=== PATIENT | male | born 1955 | race Caucasian/White ===

== ENCOUNTER 2017-06-15 12:02 | Observation (INO) ==
[2017-06-15] MEDS ORDERED: 0.9 % Sodium Chloride 500 ML IVC ONE (12:25)
[2017-06-15] MEDS ORDERED: GI Cocktail 40 ML EACH PO ONE (12:25)
[2017-06-15] MEDS ORDERED: Nitroglycerin 0.4 MG TAB.SUBL SL ONE (12:25)
--- NOTE | 2017-06-15 12:29 | Emergency Department Note ---
Disposition Clinical Impression: Chest pain, rule out acute myocardial infarction, Pancreatitis Disposition: Admitted As Inpatient Condition: Good Time of Disposition: 13:36 Chest Pain HPI - General Chief Complaint: ED Chest Pain Stated Complaint: Chest Pain Heart burn Time Seen by Provider: 06/15/17 12:12 Source: patient, family Mode of arrival: ambulatory Limitations: no limitations Vital Signs Reviewed: Yes Nursing Notes Reviewed: Yes - History of Present Illness HPI Narrative: Patient presents to the ED with the chief complaint of chest pain and heartburn. Patient reports that last 2-3 days. He has been having issues with heartburn. States that he has had a gastric bypass and has also been eating tomatoes and thinks this may be contributing. However, this morning he came in from outside and was sitting in his chair and had the abrupt onset of a retrosternal pain radiating through to his back. He reports that it felt like somebody was taking his heart and twisting it back and forth. He states this is the exact symptoms he was having with his previous DC several years ago. He does have a history of factor V Leiden deficiency and is on Xarelto. He also has a history of DVT and PE. He reports that his legs have been a little swollen, but he also has a history of CHF. States they have been mostly symmetrical but his left leg is slightly more swollen than his right. He states that the pain lasted about 20 minutes. His states that he was laid back in his chair kicking his feet saying that it was hurting so badly. He denies any headache, changes in vision, shortness of breath above baseline, abdominal pain, nausea, vomiting, diaphoresis. There is no radiation of the pain. He also has a history of a renal cell carcinoma and is status post removal. This was around the same time as his heart attack and was found incidentally on imaging of his abdomen at that time Severity scale (1-10): 2 - Related Data Home Medications Medication Instructions Recorded Confirmed Allopurinol [Zyloprim 100 MG] 100 mg PO DAILY 01/01/17 06/15/17 Amlodipine Besylate 10 mg PO DAILY 01/01/17 06/15/17 Aspirin Enteric Coated [Aspirin EC] 81 mg PO DAILY 01/01/17 06/15/17 Atorvastatin Calcium [Lipitor] 80 mg PO HS 01/01/17 06/15/17 Bumetanide 0.5 mg PO BID PRN 01/01/17 06/15/17 Cholecalciferol (D-3) [Vitamin D] 1,000 unit PO DAILY 01/01/17 06/15/17 Doxazosin Mesylate [Cardura] 8 mg PO BID 01/01/17 06/15/17 Hydralazine HCl 50 mg PO BID 01/01/17 06/15/17 Levothyroxine Sodium [Levo-T] 75 mcg PO DAILY 01/01/17 06/15/17 OxyCODONE/APAP 5/325 [Percocet 1 each PO Q6HR PRN 01/01/17 06/15/17 5/325 MG] Rivaroxaban [Xarelto] 15 mg PO HS 01/01/17 06/15/17 Vitamin B Complex [B Complex] 1 each PO DAILY 01/01/17 06/15/17 BuPROPion XL (24 HR) [Wellbutrin 150 mg PO QPM 06/15/17 06/15/17 XL] Bupropion HCl [Wellbutrin Xl] 300 mg PO QAM 06/15/17 06/15/17 Carvedilol [Coreg] 6.25 mg PO BIDWM 06/15/17 06/15/17 Cyanocobalamin (Vitamin B-12) 1,000 mcg SL DAILY 06/15/17 06/15/17 [Vitamin B-12] cloNIDine HCl [CloNIDine HCl] 0.1 mg PO BID 06/15/17 06/15/17 Allergies Allergy/AdvReac Type Severity Reaction Status Date / Time Warfarin AdvReac See Verified 01/01/17 07:49 Comments All systems ED: reviewed and negative except as stated. Constitutional: Denies: fever Cardiovascular: Reports: chest pain Genitourinary: Denies: dysuria Musculoskeletal: Denies: back pain Neurological: Denies: headache Chest Pain PMH - Past Medical History Medical history: Reports: cancer, COPD, DVT, diabetes, hyperlipidemia, hypertension, myocardial infarction, renal disease, other Surgical history: Reports: cancer surgery, cholecystectomy, other Psychiatric history: Reports: anxiety, bipolar - Social History Smoking Status: Former smoker Alcohol use: Reports: none Drug use: Reports: none Physical Exam - General Limitations: no limitations General appearance: alert, in no apparent distress - Head Head exam: atraumatic, normocephalic, normal inspection - Eye Eye exam: Present: normal appearance, PERRL, EOMI - ENT ENT exam: normal exam, normal oropharynx, mucous membranes moist - Neck Neck exam: Present: normal inspection, full ROM, trachea midline - Chest Chest inspection: Present: normal inspection, symmetric chest wall rise - Respiratory Respiratory exam: Present: normal lung sounds bilaterally - Cardiovascular Cardiovascular exam: Present: regular rate, normal rhythm, normal heart sounds - Abdominal Exam Abdominal exam: Present: soft, Non-Tender. Absent: tenderness, distention, guarding, rebound, rigidity - Extremities Exam Extremities exam: Present: normal inspection, full ROM, other (Patient reports swelling, but there is no obvious edema). Absent: tenderness, pedal edema, calf tenderness - Back Exam Back exam: Present: normal inspection, full ROM. Absent: tenderness - Neurological Exam Neurological exam: Present: alert, oriented X3 - Psychiatric Psychiatric exam: Present: normal affect, normal mood - Skin Skin exam: Present: warm, dry, intact, normal color Course Course Narrative: Very pleasant 61-year-old male presenting with anginal equivalent chest pain while at home a few hours ago. Also has a history of factor V Leiden with multiple DVTs and PEs, but only has one kidney left. He is not tachycardic, hypotensive or hypoxic. We will workup and admit for chest pain rule out. Vital Signs Temperature 97.5 F L 06/15/17 12:04 Pulse Rate 56 06/15/17 12:04 Respiratory Rate 16 06/15/17 12:04 Blood Pressure 127/68 06/15/17 12:04 O2 Sat by Pulse Oximetry 96 06/15/17 12:04 Temperature 97.5 F L 06/15/17 12:04 Pulse Rate 53 06/15/17 15:00 Respiratory Rate 16 06/15/17 15:54 Blood Pressure 134/73 06/15/17 15:54 O2 Sat by Pulse Oximetry 95 06/15/17 15:00 Oxygen Delivery Oxygen Delivery Room Air Chest Pain - Medical Records Medical records reviewed: Yes I reviewed the patient's medical records. - Lab Data Lab results reviewed: Yes I reviewed the patient's lab results. Result diagrams: 06/15/17 12:51 06/15/17 12:51 Lab Results 06/15/17 06/15/17 06/15/17 Range/Units 12:51 12:51 12:51 WBC (4.3-11.1) K/mcL RBC (4.19-5.50) M/mcL Hgb (12.9-16.9) g/dL Hct (37.5-50.1) % MCV (83.0-100.0) fL MCH (28.0-33.3) pg MCHC (31.6-35.5) g/dL RDW (11.5-14.5) % Plt Count (140-400) K/mcL MPV (9.4-12.4) fL Immature Gran % (0-4) % Seg Neutrophils % % Lymphocytes % % Monocytes % % Eosinophils % % Basophils % % Neutrophils # (1.6-8.9) K/mcL Lymphocytes # (0.6-4.6) K/mcL Monocytes # (0.0-1.3) K/mcL Eosinophils # (0.0-0.6) K/mcL Basophils # (0.0-0.2) K/mcL PT 12.7 H (9.4-12.1) Seconds INR 1.2 APTT 29.5 (26.0-36.0) Seconds Sodium (136-145) mEq/L Potassium (3.5-4.5) mEq/L Chloride (98-109) mEq/L Carbon Dioxide (19-29) mEq/L BUN (8-26) mg/dL Creatinine (0.72-1.25) mg/dL Est GFR ( Amer) (> 60) Est GFR (Non-Af Amer) (> 60) BUN/Creatinine Ratio (6-26) Glucose (70-99) mg/dL Calculated Osmolality (280-300) Calcium (8.6-10.8) mg/dL Total Bilirubin 0.5 (0.2-1.2) mg/dL Direct Bilirubin 0.2 (0.0-0.5) mg/dL Indirect Bilirubin 0.3 (0.0-1.2) mg/dL AST 43 H (5-34) Units/L ALT 57 H (0-55) Units/L Alkaline Phosphatase 82 (38-126) Units/L Troponin I (0-0.03) ng/mL B-Natriuretic Peptide 27 (0-100) pg/mL Serum Total Protein 6.8 (6.0-8.3) g/dL Albumin 3.4 L (3.5-5.0) g/dL Globulin 3.4 (2.4-3.5) g/dL Albumin/Globulin Ratio 1.0 L (1.1-2.2) Lipase 769 H (8-78) Units/L 06/15/17 06/15/17 06/15/17 Range/Units 12:51 12:51 12:51 WBC 9.8 (4.3-11.1) K/mcL RBC 4.02 L (4.19-5.50) M/mcL Hgb 11.8 L (12.9-16.9) g/dL Hct 36.6 L (37.5-50.1) % MCV 91.0 (83.0-100.0) fL MCH 29.4 (28.0-33.3) pg MCHC 32.2 (31.6-35.5) g/dL RDW 12.6 (11.5-14.5) % Plt Count 312 (140-400) K/mcL MPV 9.0 L (9.4-12.4) fL Immature Gran % 0.1 (0-4) % Seg Neutrophils % 68.5 % Lymphocytes % 18.7 % Monocytes % 8.6 % Eosinophils % 3.2 % Basophils % 0.9 % Neutrophils # 6.7 (1.6-8.9) K/mcL Lymphocytes # 1.8 (0.6-4.6) K/mcL Monocytes # 0.8 (0.0-1.3) K/mcL Eosinophils # 0.3 (0.0-0.6) K/mcL Basophils # 0.1 (0.0-0.2) K/mcL PT (9.4-12.1) Seconds INR APTT (26.0-36.0) Seconds Sodium 141 (136-145) mEq/L Potassium 4.3 (3.5-4.5) mEq/L Chloride 108 (98-109) mEq/L Carbon Dioxide 24 (19-29) mEq/L BUN 33 H (8-26) mg/dL Creatinine 1.56 H (0.72-1.25) mg/dL Est GFR ( Amer) 55 L (> 60) Est GFR (Non-Af Amer) 46 L (> 60) BUN/Creatinine Ratio 21 (6-26) Glucose 150 H (70-99) mg/dL Calculated Osmolality 302 H (280-300) Calcium 9.3 (8.6-10.8) mg/dL Total Bilirubin (0.2-1.2) mg/dL Direct Bilirubin (0.0-0.5) mg/dL Indirect Bilirubin (0.0-1.2) mg/dL AST (5-34) Units/L ALT (0-55) Units/L Alkaline Phosphatase (38-126) Units/L Troponin I 0.01 (0-0.03) ng/mL B-Natriuretic Peptide (0-100) pg/mL Serum Total Protein (6.0-8.3) g/dL Albumin (3.5-5.0) g/dL Globulin (2.4-3.5) g/dL Albumin/Globulin Ratio (1.1-2.2) Lipase (8-78) Units/L - Radiology Data Radiology results reviewed: Yes I reviewed the patient's radiology results. - EKG Data EKG attestation: Yes I reviewed and interpreted this EKG. EKG results narrative: Sinus rhythm, rate 60, VA interval 163, QRS 134, QTC 406, borderline left axis deviation, no acute ischemic changes. Attestation Statement - Attestation Attestation: I, Blair Ruiz, examined this patient and my medical decision-making was reviewed with the [employer]/PA/Advanced Practice Nurse/Resident Physician. I agree with the documented findings, disposition and treatment plan as described except to the extent set forth below. 61-year-old male presents with concerns of epigastric/chest pain. Patient states the pain was located in the subxiphoid area radiated to his back and was described as a ripping and tearing sensation. Patient states that this felt exactly like his previous heart attack. Pain occurred after he exerted himself , mowing the lawn. Patient has a history of factor V Leiden and has history of multiple blood clots. Patient does state that he has had mild swelling of the left lower extremity intermittently over the past few weeks however this is not out of the ordinary for him. He denies fever, chills, diarrhea, rash. On physical exam the patient has mild tenderness to palpation of the epigastrium. Lungs are clear to auscultation bilaterally. Patient is not tachycardic or hypoxic on exam. Pain improved significantly after administration of GI cocktail and nitroglycerin in the emergency department. X-ray did not show evidence of mediastinal widening however I would still be concerned about aortic dissection with patient's age. Initial troponin was negative. EKG showed normal sinus rhythm with a rate of 60 without evidence of STEMI. Lipase was significantly elevated. They cryptitis is a reasonable explanation for the patient's symptoms. Because of his history of nephrectomy and decreased kidney functioning, I will withhold CTA of the chest abdomen pelvis to evaluate for aortic dissection and possible PE and we will admit to the hospital for further care and evaluation.
[2017-06-15 13:02] LABS: Basophils # 0.1 K/mcL (0.0-0.2); Basophils % 0.9 %; Eosinophils # 0.3 K/mcL (0.0-0.6); Eosinophils % 3.2 %; Hematocrit 36.6 % (37.5-50.1); Hemoglobin 11.8 g/dL (12.9-16.9); Immature Granulocytes % 0.1 % (0-4); Lymphocytes # 1.8 K/mcL (0.6-4.6); Lymphocytes % 18.7 %; Mean Corpuscular HGB Conc 32.2 g/dL (31.6-35.5); Mean Corpuscular Hemoglobin 29.4 pg (28.0-33.3); Monocytes # 0.8 K/mcL (0.0-1.3); Monocytes % 8.6 %; Neutrophils # 6.7 K/mcL (1.6-8.9); Platelet Count 312 K/mcL (140-400); Red Blood Count 4.02 M/mcL (4.19-5.50); Red Cell Distribution Width 12.6 % (11.5-14.5); Segmented Neutrophils % 68.5 %
[2017-06-15 13:08] LABS: INR 1.2; Prothrombin Time 12.7 Seconds (9.4-12.1)
[2017-06-15 13:11] LABS: Activated Partial Thrombo Time 29.5 Seconds (26.0-36.0)
[2017-06-15 13:17] LABS: Calcium 9.3 mg/dL (8.6-10.8); Potassium 4.3 mEq/L (3.5-4.5)
[2017-06-15 13:19] LABS: Albumin 3.4 g/dL (3.5-5.0); Bilirubin,Direct 0.2 mg/dL (0.0-0.5); Bilirubin,Indirect 0.3 mg/dL (0.0-1.2); Bilirubin,Total 0.5 mg/dL (0.2-1.2); Globulin 3.4 g/dL (2.4-3.5); Total Protein 6.8 g/dL (6.0-8.3)
[2017-06-15] MEDS ORDERED: 0.9 % Sodium Chloride 1,000 ML IVC ONE (13:36)
[2017-06-15 14:49] LABS: Bilirubin,Urine Negative (Negative); Blood,Urine Negative (Negative); Clarity,Urine Clear (Clear); Color,Urine Yellow (Yellow); Glucose,Urine (UA) Normal (Normal); Ketones,Urine Negative (Negative); Leukocyte Esterase,Urine Negative (Negative); Nitrite,Urine Negative (Negative); Protein,Urine 100 mg/dL (Neg-Trace); Specific Gravity,Urine 1.019 (1.010-1.025); Urobilinogen,Urine Normal (Normal)
--- NOTE | 2017-06-15 15:04 | Internal Med History&Physical ---
<Arleen Lao - Last Filed: 06/15/17 16:50> Date of Encounter: 06/15/17 Time of Encounter: 15:04 Assessment and Plan (1) Chest pain Current visit: Yes Status: Acute 1 patient has a past cardiac history had a NE in 2010 with stent placement. Patient states he did have a stress test last year which was negative for ischemia as well as a cardiac cath-states it was done at this facility however I cannot find any information. He does have history of hypertension hyperlipidemia diabetes. He did experience midsternal chest pressure describing it as burning and twisting of his heart. Last approximately 5-10 minutes and resolved he did express some epigastric pain which was relieved with nitroglycerin as well as GI cocktail. First set of troponins are negative we will continue to cycle troponins 2 continuous cardiac monitoring 3 we will obtain cardiac echo 4 . Concern pancreatitis may be contributing to this pain patient's lipase is elevated and No noncontrast CT signs of acute pancreatitis. He continues to have some epigastric pain. This could be contributing to his chest pain We will hold off on a stress test at this time. We can consult cardiology as needed and have patient complete stress as outpatient 5 nitroglycerin morphine as needed for chest pain 6 oxygen as needed 7 continue with aspirin and statin and beta kinsey Qualifiers: Chest pain type: unspecified Qualified Code(s): R07.9 - Chest pain, unspecified (2) Pancreatitis Current visit: Yes Status: Acute 1 Patient has been experiencing epigastric pain, lipase is elevated at 769 CT is negative for pancreatitis-we will make patient nothing by mouth for now, CT abd : No noncontrast CT signs of acute pancreatitis. 2 we will give IV fluids 3 morphine as needed for pain 4 monitor blood sugars and treat SSI insulin Qualifiers: Chronicity: acute Pancreatitis type: unspecified pancreatitis type Acute pancreatitis complication: unspecified Qualified Code(s): K85.90 - Acute pancreatitis without necrosis or infection, unspecified (3) Diabetes Current visit: Yes Status: Acute 1 diet controlled diabetic. We will perform every 6 hours with signs: Insulin due to fact patient is nothing by mouth for pancreatitis 2 diabetic diet when able to eat Qualifiers: Diabetes mellitus type: type 2 Diabetes mellitus complication status: without complication Diabetes mellitus intermodal dispatcher insulin use: without intermodal dispatcher use Qualified Code(s): E11.9 - Type 2 diabetes mellitus without complications (4) Hypertension Current visit: Yes Status: Acute Presently controlled we will continue with home medications clonidine and hydralazine does maintain systolic less than 140 Qualifiers: Hypertension type: essential hypertension Qualified Code(s): I10 - Essential (primary) hypertension (5) History of DVT (deep vein thrombosis) Current visit: No Status: Chronic 1 patient has history of DVT as well as factor V Leiden who continue with Xarelto (6) CKD (chronic kidney disease) stage 3, GFR 30-59 ml/min Current visit: No Status: Chronic 1 patient has history of right nephrectomy due to renal cell carcinoma. Creatinine appears to be at baseline. We will continue to monitor 2 avoid nephrotoxins 3 monitor intake and output Internal Medicine - H&P: HPI Chief complaint: CP Admitted From: Emergency Dept Plans for Post Hospital Care: Home History of present illness: Mr. Nelson is a 61 year old male Renal cell carcinoma , right nephrectomy gastric bypass COPD DVT DM HLD HTN NE Factor V Liden cholecystectomy bipolar. Patient states that over the past few days he has been experiencing some heartburn and first see contributed to the fact that he has had a gastric bypass and Maze procedure eating a lot of tomatoes. This morning the patient was working in his garden he sat down to rest and he began to experience midsternal chest pressure describing as somebody taking his heart and twisting her back and forth. He did feel a little nauseous and lightheaded however he denied any shortness of breath or diaphoresis. The pain came on gradually and also partly 5-10 minutes and resolved on its own. There were no relieving or aggravating factors. He became concerned because it was similar to his pain he experienced when he had it heart attack 2010. Went to the ER for evaluation. Lab work did reveal an elevated lipase at 769 his BNP was 27 his troponin was 0. He was experiencing some epigastric pain he was given nitroglycerin as well as a GI cocktail which did relieve his symptoms Chest x-ray no acute process EKG normal sinus rhythm with no ST-T wave abnormality noted. CT of abdomen was negative for any pancreatitis. He has been admitted for further workup and evaluation. Presently patient denies any chest pain or shortness of breath. His lung sounds are clear heart sounds are regular S1 and S2 with no murmurs clicks, murmurs noted abdomen soft and nontender to palpation. No pedal edema noted. He is hemodynamically stable this time. I reviewed this case with Dr. Toribio who agree with plan. Past Med Surg Social Fam HX - Past Medical History Medical history: cancer, COPD, DVT, diabetes, hyperlipidemia, hypertension, myocardial infarction, renal disease, other Psychiatric history: anxiety, bipolar - Past Surgical History Surgical History: cancer surgery, cholecystectomy, other - Social History Smoking Status: Former smoker Smokeless Tobacco Status: No Alcohol use: none Drug use: none - Family History Mother Living Status: Age at : 63 Cause of : Renal carcinoma Father Living Status: Age at : 79 Cause of : Pancreatic cancer Internal Medicine - H&P: Meds Allopurinol [Zyloprim 100 MG] 100 mg PO DAILY 01/01/17 [History] Amlodipine Besylate 10 mg PO DAILY 01/01/17 [History] Aspirin Enteric Coated [Aspirin EC] 81 mg PO DAILY 01/01/17 [History] Atorvastatin Calcium [Lipitor] 80 mg PO HS 01/01/17 [History] Bumetanide 0.5 mg PO BID PRN 01/01/17 [History] Cholecalciferol (D-3) [Vitamin D] 1,000 unit PO DAILY 01/01/17 [History] Doxazosin Mesylate [Cardura] 8 mg PO BID 01/01/17 [History] Hydralazine HCl 50 mg PO BID 01/01/17 [History] Levothyroxine Sodium [Levo-T] 75 mcg PO DAILY 01/01/17 [History] OxyCODONE/APAP 5/325 [Percocet 5/325 MG] 1 each PO Q6HR PRN 01/01/17 [History] Rivaroxaban [Xarelto] 15 mg PO HS 01/01/17 [History] Vitamin B Complex [B Complex] 1 each PO DAILY 01/01/17 [History] BuPROPion XL (24 HR) [Wellbutrin XL] 150 mg PO QPM 06/15/17 [History] Bupropion HCl [Wellbutrin Xl] 300 mg PO QAM 06/15/17 [History] Carvedilol [Coreg] 6.25 mg PO BIDWM 06/15/17 [History] Cyanocobalamin (Vitamin B-12) [Vitamin B-12] 1,000 mcg SL DAILY 06/15/17 [ History] cloNIDine HCl [CloNIDine HCl] 0.1 mg PO BID 06/15/17 [History] 3 Allergy/AdvReac Type Severity Reaction Status Date / Time Warfarin AdvReac See Verified 01/01/17 07:49 Comments All Systems PM: A 10-system review of systems was performed and is negative for pertinent findings except as documented above in the HPI. - Constitutional Constitutional: no chills, no fever(s), no night sweats - EENT Eyes: no change in vision, no discharge, no pain, no photophobia Ears: no ear discharge, no ear pain, no tinnitus Nose, mouth and throat: no dysphagia, no nasal discharge, no neck pain, no sore throat - Cardiovascular Cardiovascular ROS IM: no chest pain, no diaphoresis, no dyspnea, no lightheadedness, no palpitations, no syncope - Respiratory Respiratory: no cough, no dyspnea, no wheezing, no excessive phlegm production - Gastrointestinal Gastrointestinal: heartburn, nausea - Musculoskeletal Musculoskeletal ROS IM: no numbness, no tingling - Integumentary Integumentary IM: no rash, no unusual bruising - Neurological Neurological ROS: no confusion, no convulsions, no focal weakness, no numbness, no tingling, no tremor(s) - Hematologic/Lymphatic Hematologic/Lymphatic: no easy bruising - Constitutional Vitals: Temp Pulse Resp BP Pulse Ox 97.5 F L 58 16 128/65 94 06/15/17 12:04 06/15/17 13:00 06/15/17 13:00 06/15/17 13:00 06/15/17 13:00 General appearance: Present: A&O X 3, answers questions appropriately - Head Head exam: Present: atraumatic, normocephalic - Eye Eye exam: Present: PERRL, conjuntiva pink, sclera anicteric Pupils: Present: PERRL - Neck Neck exam general surgery: Present: supple, trachea midline. Absent: lymphadenopathy - Respiratory Respiratory exam: Present: CTAB. Absent: accessory muscle use, rales, rhonchi, wheezes - Cardiovascular Cardiovascular exam: Present: RRR, +S1, +S2. Absent: diastolic murmur, gallop, rubs, systolic murmur - GI/Abdominal GI/Abdominal exam: Present: normal bowel sounds, soft, no peritoneal signs. Absent: distended, tenderness - Extremities Exam Extremities exam: Present: warm, radial pulses palpable and symmetrical. Absent : calf tenderness, cyanotic, pedal edema - Neurological Exam Neurological exam: Present: CN II-XII intact, oriented X3, no focal deficits. Absent: pronater drift, facial droop, speech deficit - Skin Skin exam: Present: dry, intact Internal Med - H&P Results - Labs CBC & Chem 7: 06/15/17 12:51 06/15/17 12:51 Labs: Urine 06/15/17 Range/Units 14:30 Urine Color Yellow (Yellow) Urine Clarity Clear (Clear) Urine pH 6.0 (5.0-8.0) pH Units Ur Specific [place] 1.019 (1.010-1.025) Urine Protein 100 H (Neg-Trace) mg/dL Urine Glucose (UA) Normal (Normal) mg/dL - EKG Data EKG shows normal: sinus rhythm - EKG Data Prior EKG available for review: yes When compared to previous EKG: there is no significant change - Diagnostic Studies Other Images Additional comments: Chest X-Ray 06/15/17 12:25 IMPRESSION: No acute disease. D/ / Brooke Patel Cha, MD / Brooke Patel Cha, MD Interpreting Provider: Brooke Patel Cha, MD Abdomen/Pelvis CT 06/15/17 13:51 IMPRESSION: No evidence of acute intra-abdominal inflammatory process or fluid collection. No noncontrast CT signs of acute pancreatitis. Increased density within the subcutaneous fat of the lower anterior right abdominal wall abutting the skin surface. Findings could be related to subcutaneous injection. Correlation for other etiologies to include cellulitis is recommended. D/ / Brooke Patel Cha, MD / Brooke Patel Cha, MD Interpreting Provider: Brooke Patel Cha, MD <Harjinder Toribio - Last Filed: 06/15/17 19:22> Date of Encounter: 06/15/17 Internal Medicine - H&P: HPI History of present illness: Mr. Nelson is a 61 year old male All Systems PM: A 10-system review of systems was performed and is negative for pertinent findings except as documented above in the HPI. - Constitutional Vitals: Temp Pulse Resp BP Pulse Ox 98.0 F 57 16 156/78 98 06/15/17 19:12 06/15/17 19:12 06/15/17 19:12 06/15/17 19:12 06/15/17 19:12 Internal Med - H&P Results - Labs CBC & Chem 7: 06/15/17 12:51 06/15/17 12:51 Labs: Urine 06/15/17 Range/Units 14:30 Urine Color Yellow (Yellow) Urine Clarity Clear (Clear) Urine pH 6.0 (5.0-8.0) pH Units Ur Specific [place] 1.019 (1.010-1.025) Urine Protein 100 H (Neg-Trace) mg/dL Urine Glucose (UA) Normal (Normal) mg/dL - Attending Attestation I have seen and examined pt. I have discussed with DIRECTOR FIELD SERVICES Ms Lao regarding the management plan. Agree with documentation. Pt has chest/epigastric pain. Intermittent, respond to NTG or GI cocktail. Pt has hx of CAD s/p stent. Need to r/o ACS. Will track 3 sets of troponin, keep cont cardiac monitoring, check echocardiogram. Pt has elevated lipase. Pain is also possibly due to acute pancreatitis. Will keep pt NPO, IVF, and pain control. F/U serial troponin. As pt has acute pancreatitis at this point, will not place stress test for him.
[2017-06-15] MEDS ORDERED: Ondansetron 4 MG/2 ML VIAL IVP PRN (15:05)
[2017-06-15] MEDS ORDERED: Naloxone 0.4 MG/ML INJ IVP PRN (15:05)
[2017-06-15 15:07] LABS: Bacteria,Urine Few per hpf (None-Few); RBC,Urine 0-3 per hpf (0-3); Squamous Epithelial Cell,Urine Few per lpf (None-Few); WBC,Urine 0-3 per hpf (0-3)
[2017-06-15] MEDS ORDERED: Nitroglycerin 0.4 MG TAB.SUBL SL PRN (15:10)
[2017-06-15] MEDS ORDERED: *HR* Morphine 2 MG/ML SYRINGE IVP PRN (15:10)
[2017-06-15] MEDS ORDERED: *HR* OxyCODONE/APAP 5/325 TABLET PO PRN (15:13)
[2017-06-15] MEDS ORDERED: *HR* Dextrose 50 % in Water (Syg) 50 ML SYRINGE IVP PRN (16:26)
[2017-06-15] MEDS ORDERED: D5% in Water 1,000 ML IVC PRN (16:26)
[2017-06-15] MEDS ORDERED: Dextrose Gel 15 GM PO PRN ×2 (16:26)
[2017-06-15] MEDS: Insulin LISPRO 300 UNITS/3 ML VIAL SQ SCH ×2 (18:39→19:00)
[2017-06-15] MEDS: Pantoprazole 40 MG VIAL IVP SCH (18:43)
[2017-06-15] MEDS: BuPROPion XL (24 HR) 150 MG TABLET PO SCH (18:43)
[2017-06-15] MEDS: cloNIDine HCl 0.1 MG TABLET PO SCH (20:47)
[2017-06-15] MEDS: hydrALAZINE 25 MG TABLET PO SCH (20:47)
[2017-06-15] MEDS: *HR* Rivaroxaban 15 MG TABLET PO SCH (20:47)
[2017-06-16] MEDS: Insulin LISPRO 300 UNITS/3 ML VIAL SQ SCH ×6 (00:55→18:02)
[2017-06-16 01:53] LABS: Basophils # 0.1 K/mcL (0.0-0.2); Basophils % 0.7 %; Eosinophils # 0.4 K/mcL (0.0-0.6); Eosinophils % 3.8 %; Hematocrit 35.1 % (37.5-50.1); Hemoglobin 11.4 g/dL (12.9-16.9); Immature Granulocytes % 0.2 % (0-4); Mean Corpuscular HGB Conc 32.5 g/dL (31.6-35.5); Mean Corpuscular Hemoglobin 29.6 pg (28.0-33.3); Mean Corpuscular Volume 91.2 fL (83.0-100.0); Mean Platelet Volume 8.9 fL (9.4-12.4); Monocytes # 0.8 K/mcL (0.0-1.3); Monocytes % 7.8 %; Neutrophils # 6.7 K/mcL (1.6-8.9); Platelet Count 293 K/mcL (140-400); Red Blood Count 3.85 M/mcL (4.19-5.50); Red Cell Distribution Width 12.6 % (11.5-14.5); Segmented Neutrophils % 67.5 %
[2017-06-16 02:07] LABS: BUN/Creatinine Ratio 20 (6-26); Blood Urea Nitrogen 27 mg/dL (8-26); Calcium 9.1 mg/dL (8.6-10.8); Carbon Dioxide 25 mEq/L (19-29); Chloride 110 mEq/L (98-109); Chol/HDL Ratio 3.1 (0-4.9); Cholesterol 88 mg/dL (< 200); Glucose 101 mg/dL (70-99); HDL Cholesterol 28 mg/dL (40-59); LDL Cholesterol,Calculated 41 mg/dL (0-99); Magnesium 1.9 mg/dL (1.6-2.6); Osmolality,Calculated 297 (280-300); Sodium 141 mEq/L (136-145); Triglycerides 95 mg/dL (< 150); eGFR For African Americans > 60 (> 60); eGFR For Non-African Americans 54 (> 60)
[2017-06-16] MEDS: Pantoprazole 40 MG VIAL IVP SCH ×2 (05:58→18:05)
[2017-06-16] MEDS: 0.9 % Sodium Chloride 1,000 ML IVC SCH ×2 (06:08→21:37)
--- NOTE | 2017-06-16 17:54 | Electrocardiograph Report ---
[address] [address] Test Date: 2017-06-15 Pat Name: Av Nelson Department: 105 Room: 3B Gender: [employer] Teacher: AM : 1955 Requested By: Emerson Lunsford Order Number: [id number] Reading MD: Mega Cage MD Measurements Intervals [place] Rate: 60 P: 92 IA: 163 QRS: 19 QRSD: 134 T: 27 QT: 406 QTc: 406 Interpretive Statements SINUS RHYTHM INTRAVENTRICULAR CONDUCTION DELAY Electronically Signed On 06-16-2017 17:52:14 EDT by Mega Cage MD
[2017-06-16] MEDS: cloNIDine HCl 0.1 MG TABLET PO SCH ×2 (18:01→21:37)
[2017-06-16] MEDS: Cholecalciferol (D-3) 1,000 UNIT TABLET PO SCH (18:02)
[2017-06-16] MEDS: BuPROPion XL (24 HR) 150 MG TABLET PO SCH ×2 (18:02→18:05)
[2017-06-16] MEDS: hydrALAZINE 25 MG TABLET PO SCH ×2 (18:02→21:37)
[2017-06-16] MEDS: Cyanocobalamin (B-12) 1,000 MCG TABLET PO SCH (18:02)
[2017-06-16] MEDS: Aspirin Enteric Coated 81 MG Tablet PO SCH (18:04)
[2017-06-16] MEDS: Sucralfate 1 GM TABLET PO SCH ×2 (18:05→21:37)
[2017-06-16] MEDS: amLODIPine 5 MG TABLET PO SCH (18:05)
--- NOTE | 2017-06-16 18:49 | Internal Med Progress Note ---
Date of Encounter: 06/16/17 Time of Encounter: 16:40 - Assessment and plan (1) Chest pain Current Visit: Yes Status: Acute Assessment and plan: Patient had an MRI of April, with stent placement. States that he has stress test last year which was negative for ischemia and a cardiac catheter that he states was done here, I cannot locate information. His risk factors of hypertension, hyperlipidemia, diabetes. He has had a bariatric surgery and has lost about 100 pounds. He says he did have midsternal burning, lasted approximately 5-10 minutes and resolved. It was relieved with nitroglycerin. He says that he had this same pain when he had his ND and catheter in 2010. At that time he was admitted for what they thought was pancreatitis and reflux, however it with an ND. He has had GI cocktails with minimal relief, less than 30 minutes. Patient had an echocardiogram today with LVEF of 55-60% with pseudo-normal LVDD , mild MR and no pulmonary hypertension. Troponins are negative. Chest x-ray was negative for any acute disease. EKG sinus rhythm with a rate of 60, CA interval 163 QRS 134 QTC 406. Continue telemetry Stress test in the morning Carafate for GERD symptoms, check for response Consider cardiology consult after stress Monitor labs and vital signs Qualifiers: Chest pain type: unspecified Qualified Code(s): R07.9 - Chest pain, unspecified (2) Pancreatitis Current Visit: Yes Status: Acute Assessment and plan: Patient reported epigastric pain, lipase was elevated, however has decreased significantly and is 167. AST and ALT are also elevated. CT abdomen pelvis without evidence of acute inflammatory process or fluid collection no acute signs of acute pancreatitis. CT suggest correlation for possible cellulitis and lower anterior right abdominal wall near the skin surface. Continue to monitor labs Pain control IV hydration Qualifiers: Chronicity: acute Pancreatitis type: unspecified pancreatitis type Acute pancreatitis complication: unspecified Qualified Code(s): K85.90 - Acute pancreatitis without necrosis or infection, unspecified (3) S/P bariatric surgery Current Visit: Yes Status: Acute Assessment and plan: Patient had bariatric surgery approximately one year ago. He states he has lost about 100 pounds. Monitor labs. (4) Diabetes Current Visit: Yes Status: Acute Assessment and plan: Since bariatric surgery, patient is now diet controlled diabetic. Continue sliding scale insulin, Accu-Cheks, diabetic diet. Qualifiers: Diabetes mellitus type: type 2 Diabetes mellitus complication status: without complication Diabetes mellitus rn long term care insulin use: without rn long term care use Qualified Code(s): E11.9 - Type 2 diabetes mellitus without complications (5) Hypertension Current Visit: Yes Status: Acute Assessment and plan: Well-controlled in inpatient setting. Continue home medications. Qualifiers: Hypertension type: essential hypertension Qualified Code(s): I10 - Essential (primary) hypertension (6) History of DVT (deep vein thrombosis) Current Visit: No Status: Chronic Assessment and plan: Continue Xarelto, (7) CKD (chronic kidney disease) stage 3, GFR 30-59 ml/min Current Visit: Yes Status: Chronic Assessment and plan: Patient has history of right nephrectomy due to renal cell carcinoma. Serum creatinine 1.36, GFR 54. Monitor I's and O's Avoid nephrotoxins Avoid NSAIDs - Time Spent With Patient less than 15 minutes - Subjective Interval history: Patient was seen and assessed at [facility]. He is alert and awake, he states that he has had heartburn since last night, describes a burning sensation in midsternal area that is not better with a GI cocktail. He says that he gets minimal relief for less than 30 minutes. Pain is epigastric and he is not tender to palpation in that area. He states that the pain feels exactly like his ND that he had 05/02/2011. At that point he was admitted and the doctor thought it was his pancreas. Patient had an EGD in October of this year at [place] by Dr. Segura and he was having reflux symptoms at that time, he states the test was negative. Patient states that he had [facility] last year, I am unable to locate the results. He is a patient of Dr Verduzco and has seen her once. His pain is not reproducible with movement deep inspiration, or palpitation. I have given him a Carafate and ordered a stress test. He is agreeable to this. - Constitutional Vitals: Temp Pulse Resp BP Pulse Ox 97.8 F 61 16 167/81 95 06/16/17 15:55 06/16/17 15:55 06/16/17 15:55 06/16/17 15:55 06/16/17 15:55 General appearance: Present: A&O X 3, answers questions appropriately - Head Head exam: Present: atraumatic, normal inspection, normocephalic - Eye Eye exam: Present: normal appearance, PERRL, conjuntiva pink, sclera anicteric Pupils: Present: PERRL - Neck Neck exam general surgery: Present: supple, trachea midline. Absent: lymphadenopathy, tenderness - Respiratory Respiratory exam: Present: CTAB. Absent: accessory muscle use, chest wall tenderness, rales, rhonchi, wheezes - Cardiovascular Cardiovascular exam: Present: RRR, +S1, +S2. Absent: diastolic murmur, gallop, rubs, systolic murmur - GI/Abdominal GI/Abdominal exam: Present: normal bowel sounds, soft, no peritoneal signs. Absent: distended, hernia, tenderness - Extremities Exam Extremities exam: Present: warm, radial pulses palpable and symmetrical. Absent : calf tenderness, cyanotic, pedal edema - Neurological Exam Neurological exam: Present: CN II-XII intact, oriented X3, no focal deficits. Absent: pronater drift, facial droop, speech deficit - Skin Skin exam: Present: dry, intact Internal Medicine: Result - Labs CBC & Chem 7: 06/16/17 01:37 06/16/17 01:37 Labs: Short CBC 06/16/17 Range/Units 01:37 WBC 10.0 (4.3-11.1) K/mcL Hgb 11.4 L (12.9-16.9) g/dL Hct 35.1 L (37.5-50.1) % Plt Count 293 (140-400) K/mcL Neutrophils # 6.7 (1.6-8.9) K/mcL BMP 06/16/17 01:37 Sodium 141 Potassium 4.0 Chloride 110 H Carbon Dioxide 25 BUN 27 H Creatinine 1.36 H Glucose 101 H Calcium 9.1 Cardiac Enzymes 06/15/17 06/16/17 Range/Units 19:31 01:37 Troponin I 0.01 0.01 (0-0.03) ng/mL - ABG Interpretation ABG results: PT/INR, D-dimer PT 12.7 Seconds (9.4-12.1) H 06/15/17 12:51 - Impressions Impressions Abdomen Ultrasound 06/16/17 14:30 IMPRESSION: No sonographic abnormality. D/ / Severiano Rebolledo MD / Severiano Rebolledo MD Interpreting Provider: Severiano Rebolledo MD Consult Discharge Plan - Plan Referrals: Rhona Lao MD [Primary Care Provider] -
[2017-06-16] MEDS: *HR* Rivaroxaban 15 MG TABLET PO SCH (21:37)
[2017-06-17] MEDS: Insulin LISPRO 300 UNITS/3 ML VIAL SQ SCH ×5 (00:45→23:10)
[2017-06-17 05:14] LABS: Basophils # 0.1 K/mcL (0.0-0.2); Basophils % 0.7 %; Eosinophils # 0.3 K/mcL (0.0-0.6); Hematocrit 38.1 % (37.5-50.1); Hemoglobin 12.1 g/dL (12.9-16.9); Immature Granulocytes % 0.2 % (0-4); Lymphocytes # 1.7 K/mcL (0.6-4.6); Lymphocytes % 17.1 %; Mean Corpuscular HGB Conc 31.8 g/dL (31.6-35.5); Mean Corpuscular Hemoglobin 28.8 pg (28.0-33.3); Mean Corpuscular Volume 90.7 fL (83.0-100.0); Monocytes # 0.8 K/mcL (0.0-1.3); Monocytes % 8.1 %; Neutrophils # 6.9 K/mcL (1.6-8.9); Platelet Count 308 K/mcL (140-400); Red Cell Distribution Width 12.4 % (11.5-14.5); Segmented Neutrophils % 70.9 %
[2017-06-17 05:45] LABS: Alanine Aminotransferase 42 Units/L (0-55); Aspartate Amino Transferase 27 Units/L (5-34); BUN/Creatinine Ratio 16 (6-26); Blood Urea Nitrogen 21 mg/dL (8-26); Calcium 9.4 mg/dL (8.6-10.8); Carbon Dioxide 23 mEq/L (19-29); Chloride 111 mEq/L (98-109); Glucose 108 mg/dL (70-99); Lipase 67 Units/L (8-78); Osmolality,Calculated 296 (280-300); Potassium 4.1 mEq/L (3.5-4.5); Sodium 141 mEq/L (136-145); eGFR For African Americans > 60 (> 60); eGFR For Non-African Americans 54 (> 60)
[2017-06-17] MEDS: Pantoprazole 40 MG VIAL IVP SCH ×2 (06:13→18:14)
[2017-06-17] MEDS ORDERED: Regadenoson 0.4 MG/5 ML SYRINGE IVP ONE (08:37)
[2017-06-17] MEDS ORDERED: *HR* OxyCODONE/APAP 5/325 TABLET PO PRN (09:50)
[2017-06-17] MEDS: Cyanocobalamin (B-12) 1,000 MCG TABLET PO SCH (11:45)
[2017-06-17] MEDS: Cholecalciferol (D-3) 1,000 UNIT TABLET PO SCH (11:45)
[2017-06-17] MEDS: hydrALAZINE 25 MG TABLET PO SCH ×2 (11:45→20:27)
[2017-06-17] MEDS: Aspirin Enteric Coated 81 MG Tablet PO SCH (11:45)
[2017-06-17] MEDS: Sucralfate 1 GM TABLET PO SCH ×4 (11:45→20:30)
[2017-06-17] MEDS: amLODIPine 5 MG TABLET PO SCH (11:45)
[2017-06-17] MEDS: BuPROPion XL (24 HR) 150 MG TABLET PO SCH ×2 (11:45→18:14)
[2017-06-17] MEDS: cloNIDine HCl 0.1 MG TABLET PO SCH ×2 (11:46→20:26)
--- NOTE | 2017-06-17 12:12 | Nuclear Medicine Stress Report ---
Regadenoson Nuclear Stress Name: Av Nelson Date of Study: 06/17/2017 Date: 1955 Ht: 72.0 in Medical Record#: [id number] Age: 61 Wt: 228.0 lb Gender: Male Order #: [id number] Location: [facility] Room: [facility] Supervising Provider: Alejandra Vaca CNP Reading Physician: Tawanna Verduzco DO Ordering Physician: Chloe Love CNP Primary Care Physician: Rhona Lao NPRossy Stress Technologist: Tabitha Ontiveros, [employer],CPFT Bluing Oven Tender: Eda [address] Indications: Chest Pain Impression: There is a small size, mild intensity perfusion defect involving the apical inferior wall and apex on stress imaging. Findings represent mild ischemia. See Findings for details. No appreciable change in pharmacologic stress ECG from baseline. Mildly dilated LV. Gated EF = 62%. Findings communicated to ordering provider. History: Hypertension Diabetes Hypercholesteremia Prior PCI Stress Test Summary: Stress Test Type: Pharmacologic Regadenoson 0.4mg/5ml given IV Baseline Information: Initial Heart Rate: 65 Blood Pressure: 132/62 Stress Information: Test Terminated Due to (primary): As per protocol Maximum Blood Pressure: 156/58 Maximum Heart Rate: 92 Percent Maximum Heart Rate Achieved: 57 Double Product: [id number] METS Reached: 1 Symptoms: No chest symptoms Nuclear Summary: SPECT myocardial perfusion imaging using Tc99m Sestamibi given intravenously was performed at rest and following cardiac stress testing. The resting images were obtained following initial dose of 10.3 mCi. Following stress an additional dose of 32.1 mCi was given at peak exercise or 30 seconds post regadenoson infusion. Medication Given: Time Medication Dose Units Route Findings: Stress Note * Resting ECG demonstrated normal sinus rhythm with diffuse nonspecific ST-T abnormalities and possible old septal DE. * No appreciable change in pharmacologic stress ECG from baseline. * No arrhythmias were noted during stress. * Patient had no chest pain during stress. Hemodynamic responses * Normal hemodynamic responses to pharmacologic stress. Study Quality * Study quality was fair. Left Ventricle * The left ventricle is mildly dilated. TID * No evidence of transient ischemic dilatation. Lung Uptake * There is no evidence of increase lung uptake. PERFUSION * Bowel wall uptake obscures interpretation of the basal-mid inferior wall. There may be a fixed defect in this area representing infarct. Wall motion in this area is abnormal. * There is a small size, mild intensity perfusion defect involving the apical inferior wall and apex on stress imaging. * Other segments demonstrate normal rest and stress perfusion. Gated EF % * Gated EF = 62%. Updated by Tawanna Verduzco on 06/17/2017 12:00:26 PM electronically signed on 06/17/2017 12:05:16 PM with status of Final
--- NOTE | 2017-06-17 17:13 | Internal Med Progress Note ---
Date of Encounter: 06/17/17 Time of Encounter: 16:45 - Assessment and plan (1) Chest pain Current Visit: Yes Status: Acute Assessment and plan: Patient continuing to have intermittent bouts of epigastric burning that he states feels similar to last time he had a heart attack in 2010 at which time a stent was placed. Chest x-ray negative. Abdominal CT unremarkable for acute processes. Lipase now normal. Urinalysis negative. Abdominal ultrasound unremarkable. Echocardiogram unremarkable with ejection fraction of 55-60%. Patient had an abnormal stress test. Cardiology was brought on board and the decision was made to proceed with medical management. Will add and low dose beta kinsey and Imdur per cardiology recommendations. We will observe the patient overnight on these new medications and likely discharge him tomorrow pending clinical outcomes for close outpatient follow-up with cardiology within 1-2 weeks. ITS Impressions Chest X-Ray 06/15/17 12:25 IMPRESSION: No acute disease. D/ / Brooke Patel Cha, MD / Brooke Patel Cha, MD Interpreting Provider: Brooke Patel Cha, MD Abdomen/Pelvis CT 06/15/17 13:51 IMPRESSION: No evidence of acute intra-abdominal inflammatory process or fluid collection. No noncontrast CT signs of acute pancreatitis. Increased density within the subcutaneous fat of the lower anterior right abdominal wall abutting the skin surface. Findings could be related to subcutaneous injection. Correlation for other etiologies to include cellulitis is recommended. D/ / Brooke Patel Cha, MD / Brooke Patel Cha, MD Interpreting Provider: Brooke Patel Cha, MD Abdomen Ultrasound 06/16/17 14:30 IMPRESSION: No sonographic abnormality. D/ / Severiano Rebolledo MD / Severiano Rebolledo MD Interpreting Provider: Severiano Rebolledo MD Qualifiers: Chest pain type: unspecified Qualified Code(s): R07.9 - Chest pain, unspecified (2) Abnormal stress test Current Visit: Yes Status: Acute (3) H/O renal cell cancer Current Visit: Yes Status: Chronic Assessment and plan: In 2010 status post unilateral nephrectomy. Renal functioning stable. (4) H/O unilateral nephrectomy Current Visit: Yes Status: Chronic (5) Pancreatitis Current Visit: Yes Status: Acute Assessment and plan: Patient continues to report intermittent episodes of epigastric burning and mild pain. Lipase is now normal. LFTs unremarkable. He is tolerating a regular diet. Likely resolved. Working up abnormal stress test. Qualifiers: Chronicity: acute Pancreatitis type: unspecified pancreatitis type Acute pancreatitis complication: unspecified Qualified Code(s): K85.90 - Acute pancreatitis without necrosis or infection, unspecified (6) Diabetes Current Visit: Yes Status: Chronic Assessment and plan: Since bariatric surgery patient has intentionally lost 100 pounds, patient is now diet controlled diabetic. Continue sliding scale insulin, Accu-Cheks, diabetic diet. Qualifiers: Diabetes mellitus type: type 2 Diabetes mellitus complication status: without complication Diabetes mellitus penitentiary insulin use: without machine long goods helper use Qualified Code(s): E11.9 - Type 2 diabetes mellitus without complications (7) Hypertension Current Visit: Yes Status: Chronic Assessment and plan: Borderline hypertensive at times however cardiology as adding back and low-dose beta kinsey and Imdur to his regimen. We will observe him overnight on these new medications. Patient stating that he was taken off his beta kinsey in the past. Qualifiers: Hypertension type: essential hypertension Qualified Code(s): I10 - Essential (primary) hypertension (8) History of DVT (deep vein thrombosis) Current Visit: No Status: Chronic Assessment and plan: Continue Xarelto, renally dosed (9) CKD (chronic kidney disease) stage 3, GFR 30-59 ml/min Current Visit: Yes Status: Chronic Assessment and plan: Patient has history of right nephrectomy due to renal cell carcinoma. Consistent with his baseline. Will trend. (10) S/P bariatric surgery Current Visit: Yes Status: Chronic Assessment and plan: Patient had bariatric surgery approximately one year ago. He states he has lost about 100 pounds. - Subjective Interval history: Patient seen and examined in concert with cardiology. Patient currently denies chest pain or shortness of breath. He does state that he has had a few twinges of epigastric pain and burning throughout the day. He states this feels like a prior heart attack in 2010. He states he is eating well. - Constitutional Vitals: Temp Pulse Resp BP Pulse Ox 97.9 F 56 16 119/66 95 06/17/17 15:21 06/17/17 15:21 06/17/17 15:21 06/17/17 15:21 06/17/17 15:21 General appearance: Present: A&O X 3, pleasant, no acute distress, answers questions appropriately - Head Head exam: Present: atraumatic, normocephalic - Eye Eye exam: Present: PERRL, conjuntiva pink, sclera anicteric Pupils: Present: PERRL - Neck Neck exam general surgery: Present: supple, trachea midline. Absent: lymphadenopathy - Respiratory Respiratory exam: Present: CTAB. Absent: accessory muscle use, rales, respiratory distress, rhonchi, wheezes - Cardiovascular Cardiovascular exam: Present: RRR, +S1, +S2. Absent: diastolic murmur, gallop, rubs, systolic murmur - GI/Abdominal GI/Abdominal exam: Present: normal bowel sounds, soft, tenderness (Epigastric), no peritoneal signs. Absent: distended - Extremities Exam Extremities exam: Present: warm, radial pulses palpable and symmetrical. Absent : calf tenderness, cyanotic, pedal edema - Neurological Exam Neurological exam: Present: alert, CN II-XII intact, oriented X3, no focal deficits, strengths equal and symetr throughout. Absent: pronater drift, facial droop, speech deficit - Skin Skin exam: Present: dry, intact, pallor, warm Internal Medicine: Result - Labs CBC & Chem 7: 06/17/17 04:47 06/17/17 04:47 Labs: Short CBC 06/17/17 Range/Units 04:47 WBC 9.7 (4.3-11.1) K/mcL Hgb 12.1 L (12.9-16.9) g/dL Hct 38.1 (37.5-50.1) % Plt Count 308 (140-400) K/mcL Neutrophils # 6.9 (1.6-8.9) K/mcL BMP 06/17/17 04:47 Sodium 141 Potassium 4.1 Chloride 111 H Carbon Dioxide 23 BUN 21 Creatinine 1.35 H Glucose 108 H Calcium 9.4 Liver Function 06/17/17 Range/Units 04:47 AST 27 (5-34) Units/L ALT 42 (0-55) Units/L - ABG Interpretation ABG results: PT/INR, D-dimer PT 12.7 Seconds (9.4-12.1) H 06/15/17 12:51 Consult Discharge Plan - Plan Referrals: Rhona Lao MD [Primary Care Provider] -
[2017-06-17] MEDS ORDERED: Isosorbide MONOnitrate (24 HR) 30 MG TAB.ER.24H PO ONE (18:00)
--- NOTE | 2017-06-17 18:11 | Cardiology Consult Note ---
Date of Encounter: 06/17/17 Time of Encounter: 16:00 Assessment and Plan (1) Chest pain Current Visit: Yes Status: Acute Looking at the EKG from 03/30/2015, patient demonstrates an old inferior HI, which is consistent where his cardiac stent was placed in 2010. His current EKG shows less evident findings of an old inferior HI. His troponins were not elevated on 2 occasions. Patient has risk factors for CAD including diabetes, hyperlipidemia, and HTN. His stress test had a normal EF and displayed only minor risk factors. Given that patient had a nephrectomy and has CKD, it is not my recommendation that he undergo a cardiac catheterization. Recommend that patient also be on Imdur to his current medical regimen. Qualifiers: Chest pain type: unspecified Qualified Code(s): R07.9 - Chest pain, unspecified (2) Hypertension Current Visit: Yes Status: Chronic Patient's BP in the last 24 hours has been from 104/66-161/89. Continue carvedilol, clonidine, and hydralazine. Qualifiers: Hypertension type: essential hypertension Qualified Code(s): I10 - Essential (primary) hypertension (3) CAD (coronary artery disease) Current Visit: Yes Status: Acute Patient has risk factors for CAD including diabetes, hyperlipidemia, and HTN. Continue statin, aspirin, coreg, hydralazine, and imdur. Qualifiers: Qualified Code(s): I25.10 - Atherosclerotic heart disease of [place] coronary artery without angina pectoris Discussion w patient/family: The assessment and plan as outlined above was discussed with the patient and/or family members who expressed understanding and agreement. All questions were answered. Thank you for involving us in the care of your patient. Please call with any questions. History of Present Illness Consult date: 06/17/17 Requesting physician: Shoshana Back Consult reason: Abnormal Stress Chief complaint: Chest pain History of present illness: Mr. Nelson is a 61 year old male with a PMH of renal cancer, DVT, diabetes, hyperlipidemia, hypertension, HI, Factor V leiden, and CKD with a PSH of R nephrectomy, gastric bypass, and cardiac stent placement that presents for chest pain. Patient says that two days ago that he was working in his garden and decided to sit down for 20-30 mins, from which he subsequently started to experience midsternal chest pressure. He rates the pain as a 10/10 without any radiation and was not positional. It lasted for 5-10 minutes before subsiding, although not completely until he got to the ED and was given nitro and a GI cocktail. He says the pain was very reminiscent of his heart attack from 2010. At the time of onset, he said he experienced nausea and light headedness but he denies any shortness of breath or diaphoresis. Patient says that he has been experiencing moderate bouts of heartburn for the past 2 weeks, which is sometimes accompanied by minor chest pain that lasts from 3-4 minutes. While at the hospital earlier today, he started to experience minor chest pain again that was a 3/10 in the pain scale without radiation, shortness of breath, or headaches. It lasted for 5-10 minutes and occurred while he was lying down and resolved on its own. Past Med Surg Social Fam HX - Past Medical History Medical history: cancer, COPD, DVT, diabetes, hyperlipidemia, hypertension, myocardial infarction, renal disease, other Psychiatric history: anxiety, bipolar - Past Surgical History Surgical History: cancer surgery, cholecystectomy, other - Social History Smoking Status: Former smoker Smokeless Tobacco Status: No Alcohol use: none Drug use: none - Family History Mother Living Status: Age at : 63 Cause of : Renal carcinoma Father Living Status: Age at : 79 Cause of : Pancreatic cancer Medications and Allergies Allopurinol [Zyloprim 100 MG] 100 mg PO DAILY 01/01/17 [History] Amlodipine Besylate 10 mg PO DAILY 01/01/17 [History] Aspirin Enteric Coated [Aspirin EC] 81 mg PO DAILY 01/01/17 [History] Atorvastatin Calcium [Lipitor] 80 mg PO HS 01/01/17 [History] Bumetanide 0.5 mg PO BID PRN 01/01/17 [History] Cholecalciferol (D-3) [Vitamin D] 1,000 unit PO DAILY 01/01/17 [History] Doxazosin Mesylate [Cardura] 8 mg PO BID 01/01/17 [History] Hydralazine HCl 50 mg PO BID 01/01/17 [History] Levothyroxine Sodium [Levo-T] 75 mcg PO DAILY 01/01/17 [History] OxyCODONE/APAP 5/325 [Percocet 5/325 MG] 1 each PO Q6HR PRN 01/01/17 [History] Rivaroxaban [Xarelto] 15 mg PO HS 01/01/17 [History] Vitamin B Complex [B Complex] 1 each PO DAILY 01/01/17 [History] BuPROPion XL (24 HR) [Wellbutrin XL] 150 mg PO QPM 06/15/17 [History] Bupropion HCl [Wellbutrin Xl] 300 mg PO QAM 06/15/17 [History] Carvedilol [Coreg] 6.25 mg PO BIDWM 06/15/17 [History] Cyanocobalamin (Vitamin B-12) [Vitamin B-12] 1,000 mcg SL DAILY 06/15/17 [ History] cloNIDine HCl [CloNIDine HCl] 0.1 mg PO BID 06/15/17 [History] 3 Allergy/AdvReac Type Severity Reaction Status Date / Time Warfarin AdvReac See Verified 01/01/17 07:49 Comments All Systems Review: A 10-system review of systems was performed and is negative for pertinent findings except as documented above in the HPI. - Constitutional Constitutional: no fever(s), no headache(s) - Cardiovascular Cardiovascular: palpitations, no chest pain at rest, no chest pain with exertion , no dyspnea at rest, no dyspnea on exertion, no rapid heart rate, no syncope - Respiratory Respiratory: no cough - Gastrointestinal Gastrointestinal: no abdominal pain - Neurological Neurological: no dizziness, no loss of vision, no numbness, no syncope, no tingling Physical Examination Vital Signs, Last 4 Hours Temp Pulse Resp BP Pulse Ox 06/17/17 15:21 97.9 F 56 16 119/66 95 General: Conversant, No Apparent Distress Neck: No JVD, Normal carotid pulses Cardiac: Reg Rate and Rhythm, Normal S1 and S2, No Murmur Lungs: Normal Breath Sounds, No Wheeze, Rales, Rhonchi Neuro: Alert and responsive Abdomen: Soft, Non-Tender Musculoskeletal: No Chest Wall Tenderness Extremities: No Clubbing, No Cyanosis, No Edema, Normal Pulses Results 06/17/17 04:47 06/17/17 04:47 Lab Results 06/17/17 06/17/17 04:47 04:47 WBC 9.7 Hgb 12.1 L Hct 38.1 Plt Count 308 Sodium 141 Potassium 4.1 Chloride 111 H Carbon Dioxide 23 BUN 21 Creatinine 1.35 H Glucose 108 H Calcium 9.4 AST 27 ALT 42 Lipase 67 Laboratory Tests 06/15/17 06/15/17 12:51 19:31 Troponin I 0.01 0.01 - Imaging and Cardiology Stress Test: report reviewed (06/17/17: small size, mild intensity perfusion defect involving the apical inferior wall and apex on stress imaging. Findings represent mild ischemia. Mildy dilated LV. Gated EF = 62%.) Echo: report reviewed (LVEF 55-60%. Normal LV chamber size, wall thickness and function. Pseudonormal LV diastolic dysfunction, normal RV function, mild mitral regurgitation. Without pulmonary hypertension.) - EKG Interpretation EKG results cardiology: personally reviewed (See assessment/plan.) Consult Discharge Plan - Plan Referrals: Rhona Lao MD [Primary Care Provider] -
[2017-06-17] MEDS: 0.9 % Sodium Chloride 1,000 ML IVC SCH (20:25)
[2017-06-17] MEDS: *HR* Rivaroxaban 15 MG TABLET PO SCH (20:27)
[2017-06-18] MEDS: Pantoprazole 40 MG VIAL IVP SCH (06:27)
[2017-06-18] MEDS: Insulin LISPRO 300 UNITS/3 ML VIAL SQ SCH (06:27)
[2017-06-18] MEDS ORDERED: Isosorbide MONOnitrate (24 HR) 30 MG TAB.ER.24H PO SCH (09:00)
[2017-06-18] MEDS: hydrALAZINE 25 MG TABLET PO SCH (09:46)
[2017-06-18] MEDS: cloNIDine HCl 0.1 MG TABLET PO SCH (09:46)
[2017-06-18] MEDS: Aspirin Enteric Coated 81 MG Tablet PO SCH (09:46)
[2017-06-18] MEDS: amLODIPine 5 MG TABLET PO SCH (09:47)
[2017-06-18] MEDS: BuPROPion XL (24 HR) 150 MG TABLET PO SCH (09:47)
[2017-06-18] MEDS: Sucralfate 1 GM TABLET PO SCH (09:47)
[2017-06-18] MEDS: Cyanocobalamin (B-12) 1,000 MCG TABLET PO SCH (09:47)
[2017-06-18] MEDS: Cholecalciferol (D-3) 1,000 UNIT TABLET PO SCH (09:47)
--- NOTE | 2017-06-18 09:58 | Discharge Summary ---
Date of Encounter: 06/18/17 Time of Encounter: 09:30 - Discharge Diagnosis (1) Chest pain Priority: Primary Status: Resolved Comments: Abnormal stress test. Cardiology brought on board and decision was made to proceed with medical management. Patient started on Imdur. Denied chest pain on day of discharge. Follow-up outpatient Qualifiers: Chest pain type: unspecified Qualified Code(s): R07.9 - Chest pain, unspecified (2) Abnormal stress test Priority: Primary Status: Acute (3) H/O renal cell cancer Priority: Secondary Status: Chronic Comments: Renal functioning remained stable during this admission. (4) H/O unilateral nephrectomy Priority: Secondary Status: Chronic (5) Pancreatitis Priority: Primary Status: Resolved Comments: Resolved. Patient denied abdominal pain on day of discharge. And tolerated a regular diet. Lipase is now normal. LFTs unremarkable. Qualifiers: Chronicity: acute Pancreatitis type: unspecified pancreatitis type Acute pancreatitis complication: unspecified Qualified Code(s): K85.90 - Acute pancreatitis without necrosis or infection, unspecified (6) Diabetes Priority: Secondary Status: Chronic Comments: Since bariatric surgery patient has intentionally lost 100 pounds, patient is now diet controlled diabetic. Controlled, follow-up outpatient Qualifiers: Diabetes mellitus type: type 2 Diabetes mellitus complication status: without complication Diabetes mellitus continuous churn buttermaker insulin use: without chcf use Qualified Code(s): E11.9 - Type 2 diabetes mellitus without complications (7) Hypertension Priority: Secondary Status: Chronic Comments: Borderline hypertensive at times however cardiology started the patient on Imdur. Normotensive on day of discharge Qualifiers: Hypertension type: essential hypertension Qualified Code(s): I10 - Essential (primary) hypertension (8) History of DVT (deep vein thrombosis) Priority: Secondary Status: Chronic Comments: cont home Xarelto- renally dosed (9) CKD (chronic kidney disease) stage 3, GFR 30-59 ml/min Priority: Secondary Status: Chronic Comments: Stable and improved from his baseline. Follow-up outpatient. (10) S/P bariatric surgery Priority: Secondary Status: Chronic Comments: has lost 100 pounds intentionally - Discharge Medications Prescriptions: Isosorbide MONOnitrate (24 HR) [Imdur] 30 mg PO DAILY #30 Ranitidine HCl [Heartburn Relief] 150 mg PO BID #60 tablet Home Medications: Allopurinol [Zyloprim 100 MG] 100 mg PO DAILY 01/01/17 [History] Amlodipine Besylate 10 mg PO DAILY 01/01/17 [History] Aspirin Enteric Coated [Aspirin EC] 81 mg PO DAILY 01/01/17 [History] Atorvastatin Calcium [Lipitor] 80 mg PO HS 01/01/17 [History] Bumetanide 0.5 mg PO BID PRN 01/01/17 [History] Cholecalciferol (D-3) [Vitamin D] 1,000 unit PO DAILY 01/01/17 [History] Doxazosin Mesylate [Cardura] 8 mg PO BID 01/01/17 [History] Hydralazine HCl 50 mg PO BID 01/01/17 [History] Levothyroxine Sodium [Levo-T] 75 mcg PO DAILY 01/01/17 [History] OxyCODONE/APAP 5/325 [Percocet 5/325 MG] 1 each PO Q6HR PRN 01/01/17 [History] Rivaroxaban [Xarelto] 15 mg PO HS 01/01/17 [History] Vitamin B Complex [B Complex] 1 each PO DAILY 01/01/17 [History] BuPROPion XL (24 HR) [Wellbutrin Xl] 150 mg PO QPM 06/15/17 [History] Bupropion HCl [Wellbutrin Xl] 300 mg PO QAM 06/15/17 [History] Carvedilol [Coreg] 6.25 mg PO BIDWM 06/15/17 [History] Cyanocobalamin (Vitamin B-12) [Vitamin B-12] 1,000 mcg SL DAILY 06/15/17 [ History] cloNIDine HCl [CloNIDine HCl] 0.1 mg PO BID 06/15/17 [History] Isosorbide MONOnitrate (24 HR) [Imdur] 30 mg PO DAILY #30 06/18/17 [Rx] Ranitidine HCl [Heartburn Relief] 150 mg PO BID #60 tablet 06/18/17 [Rx] Allergies/Adverse Reactions: 3 Allergy/AdvReac Type Severity Reaction Status Date / Time Warfarin AdvReac See Verified 01/01/17 07:49 Comments Procedures/tests Complete & Pending: Procedures Performed prior 72 hours Category Date Time Status NM ren perf SPECT multi [NM] Routine Exams 06/17/17 08:11 Taken US abdomen limited [US] Routine Exams 06/16/17 14:30 Completed EV echocardiogram Routine Y 06/16/17 15:11 Completed SP pharm nuclear stress Routine Y 06/17/17 08:11 Completed Date of admission: 06/15/17 14:07 Primary care physician: Rhona Lao MD Consults: 06/17/17 13:17 Consult to Cardiology [CONS] Routine Comment: Consulting Provider: Cardiology Lucía Reason for Consult: abnl stress Time Notified: 13:17 Call Completed: Yes Discharging clinician: Shoshana Back Anticipated date of discharge: 06/18/17 - Patient Status Disposition: Home, Self-Care Condition: Good Functional capacity at discharge: independent ambulation Overall status at discharge: patient is back to baseline - Discharge Instructions Follow Up With: Rhona Lao MD [Primary Care Provider] - Tahir Gamboa DO [Partnered Physician] - Additional Instructions: Follow-up with primary care provider within one to 2 weeks, follow-up with cardiology within 1-2 weeks - Diet and Activity Activity: increase activity as tolerated Diet: diabetic diet, low fat, low cholesterol, low salt diet Hospital course: Mr. Nelson is a 61 year old male with past medical history of renal cell carcinoma status post right sided nephrectomy in 2010, gastric bypass last year with subsequent 100 pound weight loss, COPD, DVT on renally dosed Xarelto, diabetes, hyperlipidemia, hypertension, factor V Leiden, cholecystectomy, bipolar disorder, CAD status post [place] status post stent, chronic kidney disease stage III. Patient presented to the emergency department chief complaint of heartburn for the past several days prior to presentation. He states that he was working in his garden when he sat down to rest and began to experience mid sternally located chest pressure described as someone taking his heart and twisting it back and forth. Patient also endorsed nausea and lightheadedness, he denies shortness of breath or diaphoresis. Pain came on gradually and lasted approximately 5-10 minutes and resolved on its own. Patient denied relieving or aggravating factors. Patient was concerned because this pain felt similar to his prior experience when he had heart attack in 2010. Workup in the emergency department revealing elevated lipase levels but otherwise unremarkable. In the emergency department, patient was given nitroglycerin and a GI cocktail at the same time which relieved his symptoms-but because they were given at same time, unclear which medication helped his symptoms. EKG negative. Patient was admitted to the hospitalist service for further evaluation and management. Abdominal pelvic CT negative for acute processes, specifically no signs of acute pancreatitis. Patient had an echocardiogram that was unremarkable with ejection fraction of 55-60%. He also had a stress test that was abnormal so cardiology was brought on board. After discussing risks versus benefits, the decision was made to proceed with medical management with the addition of Imdur to the patient's regimen. Patient was then observed overnight after starting his Imdur, and he denied chest pain or epigastric burning on day of discharge. He was able to tolerate a regular diet while admitted and his lipase returned to normal. Urinalysis negative. Abdominal ultrasound unremarkable. He was discharged home in stable condition with close outpatient follow-up with his primary care provider and cardiology recommended. ITS Impressions Chest X-Ray 06/15/17 12:25 IMPRESSION: No acute disease. D/ / Brooke Patel Cha, MD / Brooke Patel Cha, MD Interpreting Provider: Brooke Patel Cha, MD Abdomen/Pelvis CT 06/15/17 13:51 IMPRESSION: No evidence of acute intra-abdominal inflammatory process or fluid collection. No noncontrast CT signs of acute pancreatitis. Increased density within the subcutaneous fat of the lower anterior right abdominal wall abutting the skin surface. Findings could be related to subcutaneous injection. Correlation for other etiologies to include cellulitis is recommended. D/ / Brooke Patel Cha, MD / Brooke Patel Cha, MD Interpreting Provider: Brooke Patel Cha, MD Abdomen Ultrasound 06/16/17 14:30 IMPRESSION: No sonographic abnormality. D/ / Severiano Rebolledo MD / Severiano Rebolledo MD Interpreting Provider: Severiano Rebolledo MD Echocardiogram Date of Study: 06/16/2017 Impressions: LVEF 55-60%. Normal LV chamber size, wall thickness and function. Pseudonormal LV diastolic dysfunction. Normal RV function.. Mild mitral regurgitation. No pulmonary hypertension. Regadenoson Nuclear Stress Date of Study: 06/17/2017 Impression: There is a small size, mild intensity perfusion defect involving the apical inferior wall and apex on stress imaging. Findings represent mild ischemia. See Findings for details. No appreciable change in pharmacologic stress ECG from baseline. Mildly dilated LV. Gated EF = 62%. Findings communicated to ordering provider. - Time Spent with Patient Total time spent providing and/or coordinating discharge services: - Constitutional Vitals: Temp Pulse Resp BP Pulse Ox 97.6 F 59 16 133/70 96 06/18/17 07:15 06/18/17 07:15 06/18/17 07:15 06/18/17 07:15 06/18/17 07:15 General appearance: Present: A&O X 3, pleasant, no acute distress, answers questions appropriately - Head Head exam: Present: atraumatic, normocephalic - Eye Eye exam: Present: PERRL, conjuntiva pink, sclera anicteric Pupils: Present: PERRL - Neck Neck exam general surgery: Present: supple, trachea midline. Absent: lymphadenopathy - Respiratory Respiratory exam: Present: decreased breath sounds. Absent: accessory muscle use, rales, respiratory distress, rhonchi, wheezes - Cardiovascular Cardiovascular exam: Present: RRR, +S1, +S2. Absent: diastolic murmur, gallop, rubs, systolic murmur - GI/Abdominal GI/Abdominal exam: Present: normal bowel sounds, soft, no peritoneal signs. Absent: distended, tenderness - Extremities Exam Extremities exam: Present: warm, radial pulses palpable and symmetrical. Absent : calf tenderness, cyanotic, pedal edema - Neurological Exam Neurological exam: Present: alert, CN II-XII intact, normal gait, oriented X3, no focal deficits, strengths equal and symetr throughout. Absent: pronater drift, facial droop, speech deficit - Skin Skin exam: Present: dry, intact, normal color, warm
[2017-06-18 11:21] VITALS: BP 114/65
== END 2017-06-18 12:12 | disposition home or self-care (01) ==
LOC: 3BNU 12:02 → EMEROO 12:02 → 3BNU 14:34
PROVIDERS: ADMIT Internal Medicine; ATTEND Registered Nurse